=== PATIENT | female | born 1945 | race Caucasian/White ===

== ENCOUNTER 2017-01-18 19:42 | Emergency (ER) | payer OTHER ==
[2017-01-18 21:48] LABS: COLOR YELLOW; LEUKOCYTE ESTERASE,URINE 3+ (NEGATIVE); NITRITE,URINE POSITIVE (NEGATIVE)
--- NOTE | 2017-01-18 21:48 | EDPHY ---
H & P Stated Complaint: right leg pain HPI/ROS: HPI CHIEF COMPLAINT: Right leg pain. HISTORY OF PRESENT ILLNESS: This patient very pleasant 71-year-old female, she does have significant past medical history for for interstitial lung disease, she presents emergency room with right leg pain. Patient reports to me that she developed right leg pain knee down along her anterior tibial spine sharp stabbing pain. It does radiate down her right anterior tibia. Denies back pain , denies gluteal pain. Denies posterior leg pain. Denies chest pain shortness of breath. Denies abdominal pain. Denies calf fullness tenderness. The pain is since subsided she took ibuprofen prior to arrival. Past Medical History: Interstitial lung disease Past Surgical History: Denies recent surgery Social History: Denies daily use drug use alcohol tobacco. Family History: Negative. ROS REVIEW OF SYSTEMS: A comprehensive 10 point review of systems is otherwise negative aside from elements mentioned in the history of present illness. Exam Constitutional appears well nontoxic triage nursing summary reviewed, vital signs reviewed, awake/alert. Eyes normal conjunctivae and sclera, EOMI, PERRLA. HENT normal inspection, atraumatic, moist mucus membranes, no epistaxis, neck supple/ no meningismus, no raccoon eyes. Respiratory clear to auscultation bilaterally, normal breath sounds, no respiratory distress, no wheezing. Cardiovascular rate normal, regular rhythm, no murmur, no edema, distal pulses normal. Gastrointestinal soft, non-tender, no rebound, no guarding, normal bowel sounds, no distension, no pulsatile mass. Genitourinary no CVA tenderness. Musculoskeletal no midline vertebral tenderness, full range of motion, no calf swelling, no tenderness of extremities, no meningismus, good pulses, neurovascularly intact. Right lower extremity: Neurovascular intact. Good distal pulse. Good cap refill. Good sensation. No significant calf swelling or tenderness. Skin pink, warm, & dry, no rash, skin atraumatic. Area bruising over the distal anterior tibial spine. Right leg. Neurologic awake, alert and oriented x 3, AAOx3, moves all 4 extremities equally, motor intact, sensory intact, CN II-XII intact, normal cerebellar, normal vision, normal speech. Psychiatric normal mood/affect. Heme/Lymph/Immune no lymphadenopathy. Differential Diagnosis: Includes but is not limited to in a particular order the anterior tibial fracture, lance splints, DVT, soft tissue injury. Medical Decision Making: Plan for this patient ultrasound of the right lower extremity. X-ray of the right tibia. Re-evaluation: X-ray of the right tib-fib. Shows no evidence of osseous lesion or fracture. Ultrasound pending. 2318: X-rays reviewed ultrasound is reviewed. Negative for acute bony abnormality or ultrasound indicating DVT. Additionally patient complained of foul-smelling urine but no significant urinary tract infection symptoms. UA reviewed. Shows UTI. Will start on Keflex 1st dose here. Keflex for home. Recommend anti-inflammatory pain medicine for her musculoskeletal right lower extremity leg pain. Additionally return to the emergency room if there is worsening symptoms questions concerns she understands. Source: Patient - Personal History Current Tetanus Diphtheria and Acellular Pertussis (TDAP): Unsure - Medical/Surgical History Hx Chronic Respiratory Disease: Yes Hx Diabetes: Yes Other PMH: interstitial lung disease/pre diabetic/hernia - Social History Smoking Status: Former smoker Constitutional: Initial Vital Signs Temperature (C) 36.9 C 01/18/17 20:09 Heart Rate 100 01/18/17 20:09 Respiratory Rate 20 01/18/17 20:09 Blood Pressure 163/122 H 01/18/17 20:09 O2 Sat (%) 89 L 01/18/17 20:09 Allergies/Adverse Reactions: codeine [Codeine] Allergy (Unknown, Verified 01/18/17 20:09) LOBSTER Allergy (Uncoded 01/18/17 20:09) Home Medications: Medication Instructions Recorded Estrogens, Conjugated 09/01/15 Meclizine HCl [Meclizine HCl 25 mg 25 mg PO TID #20 tab 09/01/15 (RX,OTC)] Cephalexin [Keflex] 500 mg PO Q6H #28 cap 01/18/17 Medical Decision Making - Diagnostics Imaging Results: Imaging Impressions Extremity Venous Study 01/18/17 21:53 Impression: No evidence of deep vein thrombosis. Findings discussed with Yennifer Funez answering for Palmer Rodgers MD 2016 at 22:43. Tibia/Fibula X-Ray 01/18/17 21:53 Impression: Moderate osteoarthritis, increased since 2005. - Data Points Laboratory Results: 01/18/17 20:15 Urine Color YELLOW Urine Appearance HAZY Urine pH 5.0 (5.0-7.5) Ur Specific [place] 1.016 (1.002-1.030) Urine Protein NEGATIVE (NEGATIVE) Urine Ketones NEGATIVE (NEGATIVE) Urine Blood 1+ H (NEGATIVE) Urine Nitrate POSITIVE H (NEGATIVE) Urine Bilirubin NEGATIVE (NEGATIVE) Urine Urobilinogen NEGATIVE EU EU (0.2-1.0) Ur Leukocyte Esterase 3+ H (NEGATIVE) Urine RBC 3-5 /hpf H /hpf (0-3) Urine WBC 25-50 /hpf H /hpf (0-3) Ur Epithelial Cells TRACE /lpf /lpf (NONE-1+) Urine Bacteria 2+ /hpf H /hpf (NONE SEEN) Urine Mucus TRACE /lpf /lpf (NONE-1+) Urine Glucose NEGATIVE (NEGATIVE) Medications Given: Discontinued Medications Cephalexin (Keflex 500 Mg Prepack#4) 1 btl TAKEHOME EDNOW ONE PRN Reason: Protocol Stop: 01/18/17 22:20 Last Admin: 01/18/17 22:35 Dose: 1 btl Cephalexin HCl (Keflex) 500 mg PO EDNOW ONE PRN Reason: Protocol Stop: 01/18/17 22:20 Last Admin: 01/18/17 22:35 Dose: 500 mg Departure - Departure Disposition: Home, Routine, Self-Care Clinical Impression: Right leg pain UTI (urinary tract infection) Qualifiers: Urinary tract infection type: site unspecified Hematuria presence: without hematuria Qualified Code(s): N39.0 - Urinary tract infection, site not specified Condition: Good Instructions: Urinary Tract Infection in Women (ED) Additional Instructions: 1. Drink lots of fluids stay well-hydrated. 2. Return emergency room if develops worsening symptoms questions or concerns. 3. Take antibiotic as prescribed. Referrals: Octavia Duarte MD [Primary Care Provider] - As per Instructions Prescriptions: Cephalexin [Keflex] 500 mg PO Q6H #28 cap
[2017-01-18 21:55] LABS: BACTERIA 2+ /hpf (NONE SEEN); MUCUS TRACE /lpf (NONE-1+); WBC,URINE 25-50 /hpf (0-3)
[2017-01-18] MEDS ORDERED: CEPHALEXIN 500 MG CAP PO ONE (22:19)
[2017-01-18] MEDS ORDERED: CEPHALEXIN 500MG PREPACK#4 BTL TAKEHOME ONE (22:19)
[2017-01-18 23:34] VITALS: BP 134/79; PULSE 80; RESP 18; TEMP 98.1; O2SAT 91
== END 2017-01-18 23:32 | disposition home or self-care (01) ==
DX: M79.604 Pain in right leg (principal); N39.0 Urinary tract infection, site not specified; B96.89 Other specified bacterial agents as the cause of diseases classified elsewhere; Z87.891 Personal history of nicotine dependence

== ENCOUNTER → 2017-02-01 | Outpatient (CLI) | payer OTHER | LOC: BMCIMAGING 15:15 | PROVIDERS: ATTEND Physician Assistant | DX: Z13.828 Encounter for screening for other musculoskeletal disorder (principal); M17.11 Unilateral primary osteoarthritis, right knee ==

== ENCOUNTER → 2018-05-31 | Outpatient (CLI) | payer OTHER | LOC: FIMAGING 10:04 ==